=== PATIENT | male | born 1940 | race Caucasian/White ===

== ENCOUNTER 2019-08-03 11:33 | Outpatient (CLI) | payer OTHER, SELFPAY ==
--- NOTE | 2019-08-03 11:39 | XR_ITS ---
WS: [id number] XR lumbar spine f/e only [id number] REASON FOR EXAM: SPONDYLOLISTHESIS,LUMBAR REGION FINDINGS: Loss of the disc spaces are noted from L2-3 through L5-S1 with marked degenerate changes. W e suspect spinal stenosis extending from L2 through the S1 segment. XR/XR lumbar spine f/e only [id number] IMPRESSION: Degenerated disc changes L2-S1 Suspect spinal stenosis L2-S1.
== END 2019-08-03 11:34 | disposition home or self-care (01) ==
LOC: RAD 11:36
PROVIDERS: PCP Emergency Medicine Emergency Medical Services; Visit Provider Nurse Practitioner
DX: M43.16 Spondylolisthesis, lumbar region (principal); M51.37 Other intervertebral disc degeneration, lumbosacral region
CPT/HCPCS: 72120

== ENCOUNTER → 2019-09-22 10:36 | Outpatient (BNVA) | payer OTHER, SELFPAY | PROVIDERS: PCP Emergency Medicine Emergency Medical Services; Visit Provider Internal Medicine Cardiovascular Disease | DX: R06.02 Shortness of breath (principal); R60.9 Edema, unspecified; I50.33 Acute on chronic diastolic (congestive) heart failure; I25.10 Atherosclerotic heart disease of native coronary artery without angina pectoris; E78.2 Mixed hyperlipidemia; I73.9 Peripheral vascular disease, unspecified; Z87.891 Personal history of nicotine dependence; I11.0 Hypertensive heart disease with heart failure | CPT/HCPCS: 80048; 83880 ==

== ENCOUNTER 2020-01-05 09:08 | Outpatient (CLI) | payer OTHER, SELFPAY ==
--- NOTE | 2020-01-05 09:30 | US_ITS ---
WS: [id number] RENAL ULTRASOUND HISTORY: Stones COMPARISON: None available. TECHNIQUE: 2-D and color Doppler imaging of the kidney submitted. Right kidney: 11.4 cm x 5.7 cm x 7.0 cm. Normal echogenicity with no hydronephrosis or mass. Left kidney: 11.2 cm x 4.7 cm x 4.9 cm. Normal echogenicity with no hydronephrosis or mass. Aorta: Normal. Urinary Bladder: Normal distention. US/US renal BI* [id number] IMPRESSION: Normal renal ultrasound.
--- NOTE | 2020-01-05 10:15 | XR_ITS ---
WS: [id number] Exam: XR KUB [id number] Date/Time of Exam: 01/05/2020 10:15 AM Reason For Exam: Stones No bowel obstruction or free air. Mild ileus. Visualized organ margins are intact. No abnormal calcif ication noted in the region of the renal silhouettes. Advanced DJD of the lumbar spine and mild scoli osis. Right total hip replacement. Moderate amount of stool in the colon. XR/XR KUB [id number] IMPRESSION: 1. No abnormal calcifications seen in the region of the kidneys. 2. Mild ileus. Moderate amount retained stool in the colon. 3. Additional findings as above.
== END 2020-01-05 09:09 | disposition home or self-care (01) ==
PROVIDERS: PCP Emergency Medicine Emergency Medical Services; Visit Provider Urology
DX: N20.0 Calculus of kidney (principal); K56.7 Ileus, unspecified; M47.816 Spondylosis without myelopathy or radiculopathy, lumbar region
CPT/HCPCS: 74018; 76770; 81003

== ENCOUNTER → 2020-05-31 09:59 | Outpatient (BNVA) | payer OTHER, SELFPAY | PROVIDERS: PCP Emergency Medicine Emergency Medical Services; Visit Provider Orthopaedic Surgery | DX: Z20.822 Contact with and (suspected) exposure to COVID-19 (principal); Z11.52 Encounter for screening for COVID-19 | CPT/HCPCS: 87635 ==

== ENCOUNTER 2020-06-06 07:43 | Outpatient (CLI) | payer OTHER, SELFPAY ==
--- NOTE | 2020-06-06 11:00 | PFTS_ITS ---
Date of Study:06/06/20 Date of Dictation: MECHANICS: Forced vital capacity (FVC) is normal. Forced expiratory volume in one second (FEV1) is normal. FEV1/FVC is reduced. FLOW VOLUME LOOP: Significant scooping. LUNG VOLUMES: Not measured DIFFUSING CAPACITY FOR CARBON MONOXIDE: Not measured. INTERPRETATION: The postbronchodilator spirometry is consistent with mild airflow obstruction. There is a significant postbronchodilator response. Lung volumes and gas exchange were not measured. MTDD
== END 2020-06-06 07:44 | disposition home or self-care (01) ==
LOC: RT 07:45
PROVIDERS: PCP Emergency Medicine Emergency Medical Services; Visit Provider Orthopaedic Surgery
DX: J44.9 Chronic obstructive pulmonary disease, unspecified (principal); N18.9 Chronic kidney disease, unspecified
CPT/HCPCS: 94060; J7611

== ENCOUNTER 2020-08-03 10:43 | Outpatient (CLI) | payer OTHER, SELFPAY ==
[2020-08-03 11:42] LABS: Alanine Aminotransferase 14 U/L (0-41); Alkaline Phosphatase 101 IU/L (40-130); Anion Gap 13.1 (5-19); Aspartate Amino Transferase 15 U/L (0-40); Blood Urea Nitrogen 13 mg/dL (8-23); Calcium 9.1 mg/dL (8.5-10.5); Carbon Dioxide 28 mmol/L (22-29); Chloride 100 mmol/L (98-107); Globulin 2.6 g/dL (1.3-4.6); Glucose 100 mg/dL (65-115); Osmolality Calculated 284 mOsm/kg (285-295); Potassium 4.1 mmol/L (3.5-5.1); Sodium 137 mmol/L (136-145); Total Bilirubin 0.4 mg/dL (0.15-1.2); Total Protein 6.6 g/dL (6.6-8.7)
== END 2020-08-03 10:44 | disposition home or self-care (01) ==
LOC: LAB 10:45
PROVIDERS: PCP Emergency Medicine Emergency Medical Services; Visit Provider Orthopaedic Surgery
DX: N18.9 Chronic kidney disease, unspecified (principal)
CPT/HCPCS: 36415; 80053

== ENCOUNTER → 2021-07-18 09:58 | Outpatient (BNVA) | payer OTHER, SELFPAY | PROVIDERS: PCP Emergency Medicine Emergency Medical Services; Visit Provider Internal Medicine Cardiovascular Disease | DX: I25.10 Atherosclerotic heart disease of native coronary artery without angina pectoris (principal); D64.9 Anemia, unspecified; I10 Essential (primary) hypertension; E78.2 Mixed hyperlipidemia; I73.9 Peripheral vascular disease, unspecified; Z87.891 Personal history of nicotine dependence | CPT/HCPCS: 99214 ==

== ENCOUNTER → 2021-07-30 09:44 | Outpatient (BNVA) | payer OTHER, SELFPAY | PROVIDERS: PCP Emergency Medicine Emergency Medical Services; Visit Provider Surgery | DX: D64.9 Anemia, unspecified (principal); Z86.010 Personal history of colon polyps; R13.10 Dysphagia, unspecified; K92.1 Melena | CPT/HCPCS: 99204 ==

== ENCOUNTER 2021-09-19 08:32 | Day surgery (SDC) | payer OTHER, SELFPAY ==
[2021-09-18 08:58] VITALS: BMI 38.7
[2021-09-19 08:52] VITALS: BP 176/86; PULSE 60; RESP 18; TEMP 36.8; O2SAT 95
[2021-09-19] MEDS: sodium chloride 0.9% 1,000 ML 30 ML IV (08:57)
--- NOTE | 2021-09-19 09:29 | ANES.PREANE2 ---
Pre-Anesthetic Assessment Height/Weight: Height 1.73 m Weight 115.666 kg Temp Pulse Resp BP Pulse Ox O2 Del Method 98.3 F 60 18 176/86 95 09/19/21 08:52 09/19/21 08:52 09/19/21 08:52 09/19/21 08:52 09/19/21 08:52 09/19/21 08:52 Operation Date: 09/19/21 10:00 Proposed Procedures p 31883 EGD W/ Balloon , [id number] Colon,R13.10,Z86.010(Not Applicable) - DO russ Caceres Colonoscopy(Not Applicable) - Garry Hernandez DO Familial anesthetic complications: none Was Beta Mason taken within 24 hours: Yes Was Clonidine taken within 24 hours: N/A Last intake: Intake Last Liquid Date 09/18/21 Last Liquid Time 00:00 Last Solid Date 09/17/21 Last Solid Time 00:00 Social No alcohol and No tobacco (h/o smoking) Exam alert, oriented x 3, clear to auscultation bilaterally and regular rate & rhythm Airway Submandibular: within normal limits Cervical ROM: within normal limits Mallampati: Class II Dentition: false Pulmonary Chronic Obstructive Pulmonary Disease and Sleep Apnea CV/HEM Anemia, Coronary Artery Disease, Hypertension and Peripheral Vascular Disease Metabolic Hyperlipidemia and Morbid Obesity Anesthetic Plan ASA status: 3 Anesthesia: MAC Medications/Allergies Home Medications Medication Instructions Recorded Confirmed Last Taken Type cetirizine 10 mg tablet 10 mg PO DAILY PRN Allergy Symptoms 07/25/19 09/19/21 09/05/21 History cholecalciferol (vitamin D3) 50 50 mcg PO DAILY 07/25/19 09/19/21 09/17/21 History mcg (2,000 unit) capsule pravastatin 40 mg tablet 40 mg PO DAILY 07/25/19 09/19/21 09/18/21 History hydrocodone 5 mg-acetaminophen 325 1 tab PO Q6H PRN Pain 09/22/19 09/19/21 09/18/21 History mg tablet albuterol sulfate 90 mcg/actuation 2 puff inhalation Q6H PRN 07/24/20 09/19/21 09/12/21 History aerosol inhaler Shortness Of Breath bupropion HCl 150 mg tablet,12 hr 300 mg PO QAM 07/24/20 09/19/21 09/19/21 History sustained-release (Wellbutrin SR) famotidine 20 mg tablet 20 mg PO BID 07/24/20 09/19/21 09/18/21 History tadalafil 10 mg tablet 10 mg PO DAILY PRN Sexual Activity 07/24/20 09/19/21 Unknown History venlafaxine 150 mg 150 mg PO DAILY 07/24/20 09/19/21 09/19/21 History capsule,extended release 24 hr hydralazine 25 mg tablet 25 mg PO TID #270 tabs 01/18/21 09/19/21 09/17/21 Rx ferrous sulfate 325 mg (65 mg 325 mg PO DAILY 07/18/21 09/19/21 09/12/21 History iron) tablet folic acid 1 mg tablet 2 mg PO DAILY 07/18/21 09/19/21 09/17/21 History furosemide 40 mg tablet 40 mg PO DAILY PRN Edema 07/18/21 09/19/21 09/16/21 History potassium chloride 20 mEq 20 meq PO .3XWK 07/18/21 09/19/21 Unknown History tablet,extended release bisacodyl 5 mg tablet,delayed 5 mg PO DAILY 07/30/21 09/19/21 09/18/21 History release cilostazol 100 mg tablet 50 mg PO BID 07/30/21 09/18/21 Unknown History triamcinolone acetonide 0.1 % 1 applic topical DAILY PRN Rash 07/30/21 09/19/21 Unknown History topical cream albuterol sulfate 2.5 mg inhalation QID PRN 09/18/21 09/19/21 09/12/21 History Shortness Of Breath Or Wheezing diclofenac sodium 1 % topical gel 2 g topical QID PRN Pain 09/18/21 09/19/21 09/17/21 History metoprolol tartrate 25 mg tablet 12.5 mg PO BID 09/18/21 09/19/21 09/19/21 History tamsulosin 0.4 mg capsule 0.8 mg PO .EVENING 09/18/21 09/19/21 09/17/21 History Allergies Allergy/AdvReac Type Severity Reaction Status Date / Time amlodipine AdvReac Dizziness/L Verified 07/30/21 09:53 ightheadedn ess/Presync ope Current Medications Generic Name Dose Route Start Last Admin Trade Name Freq PRN Reason Stop Dose Admin Sodium Chloride 1,000 mls @ 30 mls/hr 09/19/21 08:45 09/19/21 08:57 Sodium Chloride 0.9% IV 09/20/21 08:44 30 mls/hr .Q24H AMANDA Administration PFSH Anesthesia Medical History (Updated 07/30/21 @ 10:26 by Garry Hernandez DO) Anxiety Atherosclerosis of coronary artery of [place] heart without angina pectoris The most recent cardiac catheterization was done on 12/01/2018 BPH loc w urin obs/LUTS Chronic kidney disease COPD (chronic obstructive pulmonary disease) Edema, peripheral GERD (gastroesophageal reflux disease) History of colon polyps History of kidney stones Hyperlipidemia Hypertension Impotence, organic Incomplete bladder emptying Malignant melanoma of skin Peptic ulcer Peripheral arterial disease Peroneal tendinitis SOB (shortness of breath) Vitamin D deficiency Surgical History H/O arthroscopy of knee H/O hernia repair History of colonoscopy with polypectomy History of esophagogastroduodenoscopy History of right hip replacement History of right knee joint replacement Hx of cataract extraction Hx of total knee replacement Family History Mother Cancer Lung disease Father Cancer Lung disease Sister Cancer Dementia Family/Other Cancer Grandmother Diabetes Other Hypertension Denies family history of CAD (coronary artery disease) Clotting disorder Chronic kidney disease (CKD) Suicide Anesthesia complication Bleeding disorder Stroke Social History Smoking and tobacco status: former smoker (quit in ) Alcohol intake: current Alcohol intake frequency: 0-2 Drinks per Day Household members: spouse Marital status: Current occupational status: retired Data Anesthesia Cardiac Studies: No Data to Display
--- NOTE | 2021-09-19 09:55 | PM.HP ---
Providers/Chief Complaint Primary Care Provider: Jonny Clay DO Chief Complaint: GERD, dysphagia, hematochezia, anemia History of Present Illness Víctor Rogers is a 81 year old male who comes for EGD with possible dilation and colonoscopy for GERD, dysphagia, hematochezia and anemia. This is an update H&P Review of Systems General: Reports: 10 or more systems reviewed and unremarkable except in HPI and below Medications/Allergies Home Medications Medication Instructions Recorded Confirmed Last Taken Type cetirizine 10 mg tablet 10 mg PO DAILY PRN Allergy Symptoms 07/25/19 09/19/21 09/05/21 History cholecalciferol (vitamin D3) 50 50 mcg PO DAILY 07/25/19 09/19/21 09/17/21 History mcg (2,000 unit) capsule pravastatin 40 mg tablet 40 mg PO DAILY 07/25/19 09/19/21 09/18/21 History hydrocodone 5 mg-acetaminophen 325 1 tab PO Q6H PRN Pain 09/22/19 09/19/21 09/18/21 History mg tablet albuterol sulfate 90 mcg/actuation 2 puff inhalation Q6H PRN 07/24/20 09/19/21 09/12/21 History aerosol inhaler Shortness Of Breath bupropion HCl 150 mg tablet,12 hr 300 mg PO QAM 07/24/20 09/19/21 09/19/21 History sustained-release (Wellbutrin SR) famotidine 20 mg tablet 20 mg PO BID 07/24/20 09/19/21 09/18/21 History tadalafil 10 mg tablet 10 mg PO DAILY PRN Sexual Activity 07/24/20 09/19/21 Unknown History venlafaxine 150 mg 150 mg PO DAILY 07/24/20 09/19/21 09/19/21 History capsule,extended release 24 hr hydralazine 25 mg tablet 25 mg PO TID #270 tabs 01/18/21 09/19/21 09/17/21 Rx ferrous sulfate 325 mg (65 mg 325 mg PO DAILY 07/18/21 09/19/21 09/12/21 History iron) tablet folic acid 1 mg tablet 2 mg PO DAILY 07/18/21 09/19/21 09/17/21 History furosemide 40 mg tablet 40 mg PO DAILY PRN Edema 07/18/21 09/19/21 09/16/21 History potassium chloride 20 mEq 20 meq PO .3XWK 07/18/21 09/19/21 Unknown History tablet,extended release bisacodyl 5 mg tablet,delayed 5 mg PO DAILY 07/30/21 09/19/21 09/18/21 History release cilostazol 100 mg tablet 50 mg PO BID 07/30/21 09/18/21 Unknown History triamcinolone acetonide 0.1 % 1 applic topical DAILY PRN Rash 07/30/21 09/19/21 Unknown History topical cream albuterol sulfate 2.5 mg inhalation QID PRN 09/18/21 09/19/21 09/12/21 History Shortness Of Breath Or Wheezing diclofenac sodium 1 % topical gel 2 g topical QID PRN Pain 09/18/21 09/19/21 09/17/21 History metoprolol tartrate 25 mg tablet 12.5 mg PO BID 09/18/21 09/19/21 09/19/21 History tamsulosin 0.4 mg capsule 0.8 mg PO .EVENING 09/18/21 09/19/21 09/17/21 History Allergies Allergy/AdvReac Type Severity Reaction Status Date / Time amlodipine AdvReac Dizziness/L Verified 07/30/21 09:53 ightheadedn ess/Presync ope PFSH Acute PFSH: Medical History (Updated 09/19/21 @ 09:56 by Garry Hernandez DO) Anxiety Atherosclerosis of coronary artery of [place] heart without angina pectoris The most recent cardiac catheterization was done on 12/01/2018 BPH loc w urin obs/LUTS Chronic kidney disease COPD (chronic obstructive pulmonary disease) Edema, peripheral GERD (gastroesophageal reflux disease) History of colon polyps History of kidney stones Hyperlipidemia Hypertension Impotence, organic Incomplete bladder emptying Malignant melanoma of skin Peptic ulcer Peripheral arterial disease Peroneal tendinitis SOB (shortness of breath) Vitamin D deficiency Surgical History H/O arthroscopy of knee H/O hernia repair History of colonoscopy with polypectomy History of esophagogastroduodenoscopy History of right hip replacement History of right knee joint replacement Hx of cataract extraction Hx of total knee replacement Family History Mother Cancer Lung disease Father Cancer Lung disease Sister Cancer Dementia Family/Other Cancer Grandmother Diabetes Other Hypertension Denies family history of CAD (coronary artery disease) Clotting disorder Chronic kidney disease (CKD) Suicide Anesthesia complication Bleeding disorder Stroke Social History Smoking and tobacco status: former smoker (quit in ) Alcohol intake: current Alcohol intake frequency: 0-2 Drinks per Day Household members: spouse Marital status: Current occupational status: retired Vitals/I&O/Wt Last Vital Signs Temp 98.3 F 09/19/21 08:52 Pulse 60 09/19/21 08:52 Resp 18 09/19/21 08:52 BP 176/86 09/19/21 08:52 Pulse Ox 95 09/19/21 08:52 O2 Del Method 09/19/21 08:52 Weight last 48 hrs Weight 255 lb Physical Exam Narrative: General : Patient is well developed , no acute distress, oriented x3 Head : Normal cephalic, a-traumatic. Ears : Pinnae and external canal are normal. Hearing is normal. Eyes : PERRLA, Sclera and injection are normal. No conjunctival discharge. Nose : Mucous membranes are without erythema. Throat : buccal mucosa is normal, gums are without significant recession or hypertrophy. Lungs : Equal chest rise bilaterally, no use of accessory muscles, trachea is midline. Cor : Rate and rhythm are normal. Abdomen : Soft, ND, NT, no g/r/m Extremities : No edema, no cyanosis or clubbing, dorsalis pedis pulses are present bilaterally, non-tender to palpation of calves. Upper extremities are normal bilaterally. Back : non-tender to palpation, no CVA tenderness. Neuro : CN II - XII intact, Upper and lower extremities have equal and full strength A&P Assessment and plan (1) Dysphagia: Status: Acute (2) Hematochezia: Status: Acute (3) Anemia: Status: Acute (4) History of colon polyps: Status: Acute (5) GERD (gastroesophageal reflux disease): Status: Acute Plan EGD with possible dilation Colonoscopy The risks and benefits of the procedure, including bleeding, infection, intestinal perforation requiring surgery, missed lesion, or explained to the patient. He is understanding of the risks and wishes to proceed. Attestations Medical Necessity Statement*: Patient will be discharged home after the procedure Coding Level of Care Code Acute Training And Development Officer for [facility] Fwd Diagnoses Dysphagia R13.10 Hematochezia K92.1 Anemia D64.9 History of colon polyps Z86.010 GERD (gastroesophageal reflux disease) K21.9
[2021-09-19 10:32] VITALS: BP 178/86; PULSE 65; RESP 18; TEMP 36.4; O2SAT 98
[2021-09-19 10:43] VITALS: BP 164/85; PULSE 60; RESP 18; O2SAT 96
[2021-09-19 10:50] VITALS: BP 186/88; PULSE 57; RESP 18; O2SAT 95
--- NOTE | 2021-09-19 13:38 | ANE.PACU2 ---
Inpatient post-anesthesia follow up: Airway intact: Yes Vital signs: Temperature 97.6 F Pulse Rate 57 Respiratory Rate 18 Blood Pressure 186/88 Pulse Oximetry 95 Oxygen Delivery Me thod Room Air Oxygen Flow Rate Fraction of Inspir ed Oxygen Hydration adequate: Yes Nausea and vomiting: No Pain level: 1 Mental status: Baseline
== END 2021-09-19 11:05 | disposition home or self-care (01) ==
PROVIDERS: PCP Emergency Medicine Emergency Medical Services; Visit Provider Surgery
PROC: 0DJD8ZZ Inspection of Lower Intestinal Tract, Via Natural or Artificial Opening Endoscopic (ICD-10-PCS; CPT 45378; 2021-09-19 10:00)
DX: K22.2 Esophageal obstruction (principal); D12.4 Benign neoplasm of descending colon; K92.1 Melena; R13.10 Dysphagia, unspecified; D64.9 Anemia, unspecified; Z86.010 Personal history of colon polyps; K21.9 Gastro-esophageal reflux disease without esophagitis; F41.9 Anxiety disorder, unspecified; I25.10 Atherosclerotic heart disease of native coronary artery without angina pectoris; N40.1 Benign prostatic hyperplasia with lower urinary tract symptoms; N13.8 Other obstructive and reflux uropathy; J44.9 Chronic obstructive pulmonary disease, unspecified; E78.5 Hyperlipidemia, unspecified; Z87.11 Personal history of peptic ulcer disease; E55.9 Vitamin D deficiency, unspecified; I12.9 Hypertensive chronic kidney disease with stage 1 through stage 4 chronic kidney disease, or unspecified chronic kidney disease; N18.9 Chronic kidney disease, unspecified; Z87.891 Personal history of nicotine dependence; G47.30 Sleep apnea, unspecified; I10 Essential (primary) hypertension; E66.01 Morbid (severe) obesity due to excess calories; Z68.38 Body mass index [BMI] 38.0-38.9, adult
CPT/HCPCS: 43249; 45380; 88305; J2704; J7030

== ENCOUNTER → 2021-10-03 09:49 | Outpatient (BNVA) | payer OTHER, SELFPAY | PROVIDERS: PCP Emergency Medicine Emergency Medical Services; Visit Provider Surgery | DX: D36.9 Benign neoplasm, unspecified site (principal); K22.2 Esophageal obstruction | CPT/HCPCS: 99212 ==

== ENCOUNTER → 2022-01-23 09:38 | Outpatient (BNVA) | payer OTHER, SELFPAY | PROVIDERS: PCP Emergency Medicine Emergency Medical Services; Visit Provider Internal Medicine Cardiovascular Disease | DX: I25.10 Atherosclerotic heart disease of native coronary artery without angina pectoris (principal); E78.2 Mixed hyperlipidemia; I73.9 Peripheral vascular disease, unspecified; J61 Pneumoconiosis due to asbestos and other mineral fibers; J44.9 Chronic obstructive pulmonary disease, unspecified; Z87.891 Personal history of nicotine dependence; I12.9 Hypertensive chronic kidney disease with stage 1 through stage 4 chronic kidney disease, or unspecified chronic kidney disease; N18.9 Chronic kidney disease, unspecified | CPT/HCPCS: 99214 ==

== ENCOUNTER → 2022-08-04 08:56 | Outpatient (BNVA) | payer OTHER, SELFPAY | PROVIDERS: PCP Emergency Medicine Emergency Medical Services; Visit Provider Specialist | DX: I12.9 Hypertensive chronic kidney disease with stage 1 through stage 4 chronic kidney disease, or unspecified chronic kidney disease (principal); N18.9 Chronic kidney disease, unspecified; I25.10 Atherosclerotic heart disease of native coronary artery without angina pectoris; E78.5 Hyperlipidemia, unspecified; Z87.891 Personal history of nicotine dependence | CPT/HCPCS: 99214 ==

== ENCOUNTER 2022-08-31 08:23 | Emergency (ER) | payer OTHER, SELFPAY ==
--- NOTE | 2022-08-31 08:29 | USR_ITS ---
PROCEDURE INFORMATION: Exam: US Scrotum Exam date and time: 08/31/2022 9:00 AM Age: 82 years old Clinical indication: Swelling, testicles or scrotum; Additional info: Swollen testicle TECHNIQUE: Imaging protocol: Real-time ultrasound of the scrotum and contents with color Doppler and image documentation. COMPARISON: None FINDINGS: Right testicle: Nonvisualization of the right testis. Left testicle: Left testis measures 4.3 x 2.2 by 3.2 cm. Intratesticular blood flow demonstrated. 9 mm left testicular cyst.. Epididymides: Left epididymal cysts, largest measuring 10 mm. Scrotum/soft tissues: Bilateral scrotal cysts, including a septated cyst in the right scrotum measuring 3.3 x 1.4 x 2.9 cm. Small left hydrocele. Left varicocele. US/US scrotum [id number] IMPRESSION: 1. Bilateral scrotal cysts, including a septated right scrotal cyst measuring 3.3 x 1.4 x 2.9 cm. Additional epididymal and left testicular cysts. 2. Nonvisualization of the right testis. 3. Left varicocele.
[2022-08-31 08:34] VITALS: BP 182/101; PULSE 56; RESP 16; TEMP 36.6; O2SAT 97
[2022-08-31 08:41] VITALS: BP 182/101; PULSE 55; RESP 18; O2SAT 95
--- NOTE | 2022-08-31 08:41 | ED_ITS ---
HPI - Male Genitourinary General: Chief complaint: Urogenital-Male Stated complaint: swollen testicle Time Seen by Provider: 08/31/22 08:29 History of Present Illness: Patient is a 82-year-old male comes to the ED with testicle swelling. 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 Past medical history of GERD, hypertension, COPD and CKD. He states that approximately 6 to 7 days ago patient's dog jumped up to sit on his lap and it smashed his testicle. He was having some mild soreness and achiness in his testicle after the first couple days. About 2 days ago he noticed his testicle started swelling. He says the pain is still continued to be mild. Pain worsens if he gets up and walks around. Denies any fevers, chills, vomiting, abdominal pain, bladder or bowel symptoms. Associated symptoms: Deny dysuria, hematuria, nausea or vomiting Review of Systems Const: Denies: fever(s), chills or fatigue Eyes: Denies: change in vision or eye discomfort ENMT: Denies: throat pain, odynophagia, nasal discharge or nasal congestion Card: Denies: chest pain, palpitations, edema, swelling of feet/ankles, dyspnea on exertion or orthopnea Resp: Denies: dyspnea, productive cough or non-productive cough GI: Denies: abdominal pain, nausea, vomiting, diarrhea, constipation or hematochezia : Reports: testicular pain and scrotal swelling; Denies: flank pain, difficulty urinating, dysuria, hematuria, genital lesions or penile discharge Musc: Denies: neck pain, back pain or extremity swelling Skin/Breast: Denies: rash or new lesions Neuro: Denies: headache(s), numbness in extremities or weakness in extremities PFSH ED PFSH: Medical History Anxiety Atherosclerosis of coronary artery of [place] heart without angina pectoris The most recent cardiac catheterization was done on 12/01/2018 BPH loc w urin obs/LUTS Chronic kidney disease COPD (chronic obstructive pulmonary disease) Dysphagia Edema, peripheral Esophageal stricture GERD (gastroesophageal reflux disease) History of colon polyps History of kidney stones Hyperlipidemia Hypertension Impotence, organic Incomplete bladder emptying Malignant melanoma of skin Peptic ulcer Peripheral arterial disease Peroneal tendinitis SOB (shortness of breath) Tubular adenoma Vitamin D deficiency Surgical History H/O arthroscopy of knee H/O hernia repair History of colonoscopy with polypectomy History of esophagogastroduodenoscopy History of right hip replacement History of right knee joint replacement Hx of cataract extraction Hx of total knee replacement Family History Mother Cancer Lung disease Father Cancer Lung disease Sister Cancer Dementia Family/Other Cancer Grandmother Diabetes Other Hypertension Denies family history of CAD (coronary artery disease) Clotting disorder Chronic kidney disease (CKD) Suicide Anesthesia complication Bleeding disorder Stroke Social History Smoking and tobacco status: former smoker (quit in ) Alcohol intake: current Alcohol intake frequency: 0-2 Drinks per Day Substance/Drug Use: never Household members: spouse Marital status: Current occupational status: retired Physical Exam Const: COMMON NORMALS: no acute distress, patient oriented x3 and alert HENMT: COMMON NORMALS: normocephalic HEAD & SCALP: normocephalic MOUTH: Normal oral and palatal mucosa present THROAT: posterior oropharynx normal and uvula midline Neck/C-Spine: COMMON NORMALS: supple GENERAL: Yes normal visual inspection Resp: COMMON NORMALS: normal respiratory effort, No retractions, No use of accessory muscles and clear to auscultation bilaterally AUSCULTATION: clear to auscultation bilaterally Cardio: COMMON NORMALS: regular rate, regular rhythm, S1 normal heart sound present, S2 normal heart sound present, No gallops present (Cardio), No clicks present (Cardio), No murmurs present (Cardio) and Peripheral pulses 2+ throughout RATE: regular rate RHYTHM: regular rhythm HEART SOUNDS: S1 normal heart sound present and S2 normal heart sound present PERIPHERAL PULSES: Peripheral pulses 2+ throughout GI: COMMON NORMALS: Normal to inspection, nondistended, normoactive bowel sounds present, Soft to palpation, non-tender and no masses PALPATION: Yes Soft to palpation : COMMON NORMALS: Yes no CVA tenderness BLADDER/KIDNEY EXAM: Yes no CVA tenderness SCROTUM: Yes Scrotal tenderness present, No erythematous and Yes scrotal swelling Scrotal swelling laterality: bilateral OTHER: Patient does not have right testicle, patient states he lost testicle after an injury in high school. Back/Pelvis: COMMON NORMALS: no CVA tenderness Extremity: COMMON NORMALS: normal to inspection Neuro: COMMON NORMALS: patient oriented x3 SENSORIUM/ORIENTATION: Yes alert GAIT: Yes Normal gait present Skin: GENERAL SKIN EXAM: dry skin Course Vital Signs: Vital signs: Vital Signs Temperature 98 F 08/31/22 11:12 Pulse Rate 60 08/31/22 11:12 Respiratory Rate 18 08/31/22 11:12 Blood Pressure 153/78 08/31/22 11:12 Pulse Oximetry 99 08/31/22 11:12 Oxygen Delivery Me thod Room Air 08/31/22 10:30 [facility] - Male Medical Decision Making Patient is a 82-year-old male comes to the ED with testicle swelling. 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 Past medical history of GERD, hypertension, COPD and CKD. He states that approximately 6 to 7 days ago patient's dog jumped up to sit on his lap and it smashed his testicle. He was having some mild soreness and achiness in his testicle after the first couple days. About 2 days ago he noticed his testicle started swelling. He says the pain is still continued to be mild. Pain worsens if he gets up and walks around. Denies any fevers, chills, vomiting, abdominal pain, bladder or bowel symptoms. Vitals are stable patient appears nontoxic in no acute distress or pain. He has tender bilateral scrotal mass noted. No erythema seen. Rest of exam is benign. CBC, CMP and UA were all unremarkable. Scrotal ultrasound showed a bilateral scrotal cyst with some additional epididymal and left testicular cysts as well. I placed an order with case management for patient be referred to urologist for follow-up on scrotal cyst. Return to ED precautions given. Patient understood and agreed with plan. Lab Data I reviewed the patient's lab results. 08/31/22 08:57 08/31/22 08:57 Radiology Impressions Scrotum Ultrasound 08/31/22 08:29 IMPRESSION: 1. Bilateral scrotal cysts, including a septated right scrotal cyst measuring 3.3 x 1.4 x 2.9 cm. Additional epididymal and left testicular cysts. 2. Nonvisualization of the right testis. 3. Left varicocele. Laboratory Results WBC 7.9 10^3/uL (4.0-10.0) 08/31/22 08:57 RBC 4.92 10^6/uL (4.1-5.3) 08/31/22 08:57 Hgb 14.4 g/dL (11.7-16.6) 08/31/22 08:57 Hct 44.5 % (42.0-52.0) 08/31/22 08:57 MCV 90.4 fl (80-94) 08/31/22 08:57 MCH 29.3 pg (28.0-34.0) 08/31/22 08:57 MCHC 32.4 g/dL (30.0-36.0) 08/31/22 08:57 RDW 14.6 % (12.1-15.1) 08/31/22 08:57 Plt Count 258 10^3/cmm (130-400) 08/31/22 08:57 MPV 9.2 fL (7.4-10.4) 08/31/22 08:57 Neut % (Auto) 59.5 % 08/31/22 08:57 Lymph % (Auto) 23.6 % 08/31/22 08:57 [place] % (Auto) 12.8 % 08/31/22 08:57 Eos % (Auto) 2.8 % 08/31/22 08:57 Baso % (Auto) 1.0 % 08/31/22 08:57 Neut # (Auto) 4.72 10^3/uL (1.8-7.7) 08/31/22 08:57 Lymph # (Auto) 1.9 10^3/uL (0.8-4.8) 08/31/22 08:57 [place] # (Auto) 1.0 10^3/uL (0.2-0.9) H 08/31/22 08:57 Eos # (Auto) 0.2 10^3/uL (0.0-0.8) 08/31/22 08:57 Baso # (Auto) 0.1 10^3/uL (0.0-0.1) 08/31/22 08:57 Nucleated RBC % (auto) 0 % 08/31/22 08:57 Nucleated RBCs # 0.0 /100WBC 08/31/22 08:57 Sodium 134 mmol/L (136-145) L 08/31/22 08:57 Potassium 3.9 mmol/L (3.5-5.1) 08/31/22 08:57 Chloride 99 mmol/L (98-107) 08/31/22 08:57 Carbon Dioxide 24 mmol/L (22-29) 08/31/22 08:57 Anion Gap 14.9 (5-19) 08/31/22 08:57 BUN 14 mg/dL (8-23) 08/31/22 08:57 Creatinine 1.1 mg/dL (0.7-1.2) 08/31/22 08:57 GFR Calculation Not Reportable 08/31/22 08:57 Glucose 102 mg/dL (65-115) 08/31/22 08:57 Calculated Osmolality 279 mOsm/kg (285-295) L 08/31/22 08:57 Calcium 9.3 mg/dL (8.5-10.5) 08/31/22 08:57 Total Bilirubin 0.9 mg/dL (0.15-1.2) 08/31/22 08:57 AST 19 U/L (0-40) 08/31/22 08:57 ALT 23 U/L (0-41) 08/31/22 08:57 Alkaline Phosphatase 89 U/L (40-130) 08/31/22 08:57 Total Protein 6.8 g/dL (6.6-8.7) 08/31/22 08:57 Albumin 3.9 g/dL (3.5-5.2) 08/31/22 08:57 Globulin 2.9 g/dL (1.3-4.6) 08/31/22 08:57 Urine Color Yellow (Yellow) 08/31/22 10:16 Urine Appearance Clear (CLEAR) 08/31/22 10:16 Urine pH 7 (5-7) 08/31/22 10:16 Ur Specific [place] 1.005 (1.005-1.030) 08/31/22 10:16 Urine Protein Neg (Negative) 08/31/22 10:16 Urine Glucose (UA) Norm (Normal) 08/31/22 10:16 Urine Ketones Negative (Negative) 08/31/22 10:16 Urine Blood Neg (Negative) 08/31/22 10:16 Urine Nitrate Negative (Negative) 08/31/22 10:16 Urine Bilirubin Neg (Negative) 08/31/22 10:16 Urine Urobilinogen Norm mg/dL (Negative) 08/31/22 10:16 Ur Leukocyte Esterase Negative (Negative) 08/31/22 10:16 Discharge Plan Discharge Patient Disposition: Home Clinical Impression: Cyst of scrotum Condition: Stable Prescriptions: No Action pravastatin 40 mg tablet 40 mg PO BEDTIME cetirizine 10 mg tablet 10 mg PO DAILY PRN (Reason: Allergy Symptoms) cholecalciferol (vitamin D3) 50 mcg (2,000 unit) capsule 50 mcg PO QAM furosemide 40 mg tablet 40 mg PO DAILY PRN (Reason: Edema) albuterol sulfate 90 mcg/actuation HFA aerosol inhaler 2 puff inhalation Q6H PRN (Reason: Shortness Of Breath) famotidine 20 mg tablet 20 mg PO BID tadalafil 10 mg tablet 10 mg PO DAILY PRN (Reason: Sexual Activity) Rx Instructions: administer approximately 30min before sexual activity; do not use more than 1 dose per 24hrs venlafaxine 150 mg capsule,extended release 24hr 150 mg PO QAM triamcinolone acetonide 0.1 % cream 1 applic topical DAILY PRN (Reason: Rash) cilostazol 100 mg tablet 50 mg PO BID hydrochlorothiazide 25 mg tablet 25 mg PO DAILY Qty: 90 2RF hydralazine 25 mg tablet 25 mg PO TID Qty: 270 3RF albuterol sulfate 2.5 mg /3 mL (0.083 %) Solution For Nebulization 2.5 mg INHALATION QID PRN (Reason: Shortness Of Breath Or Wheezing) diclofenac sodium 1 % Gel 2 g TOPICAL QID PRN (Reason: Pain) Rx Instructions: apply to single elbow, wrist or hand; for hand includes palm/fingers/back of hand tamsulosin 0.4 mg capsule 0.8 mg PO BEDTIME metoprolol tartrate 25 mg tablet 12.5 mg PO BID Aspir-81 81 mg Tablet,Delayed Release (Dr/Ec) 81 mg PO QAM Wellbutrin XL 150 mg Tablet Extended Release 24 Hr 150 mg PO QAM Discharge Orders: Discharge ED (Routine); Ordered 08/31/22 Ordered By: Eric Danitza Referrals: Jonny Clay DO [Primary Care Provider] - Discharge Diet: Regular Discharge Activity: Increase activity as tolerated Patient Instructions: Scrotal Pain (ED) Activity Restrictions/Additional Instructions: Follow-up with medical provider as directed. Case management should be contacted in the next several days to set up an appointment with urologist for follow-up on scrotal cyst. Continue taking home medications as prescribed. Return to the ER or your medical provider if condition worsens. Please read and understand discharge instructions. Thank you for choosing [facility] for your healthcare needs today. Please realize this is an emergency room and that we are providing you with a medical screening exam and this may not be complete and all inclusive of all the testing and or work up that you may need to determine your ailment or severity of your illness. It is very important that you follow up as instructed or that you return to the Emergency Department should you have concerns or if your condition changes or worsens in any way. Coding Level of Care Code ED Auto Electrical Technician for Maryan William
[2022-08-31 09:10] LABS: Basophils # 0.1 10^3/uL (0.0-0.1); Eosinophils # 0.2 10^3/uL (0.0-0.8); Eosinophils % 2.8 %; Hematocrit 44.5 % (42.0-52.0); Hemoglobin 14.4 g/dL (11.7-16.6); Lymphocytes # 1.9 10^3/uL (0.8-4.8); Lymphocytes % 23.6 %; Mean Corpuscular HGB Conc 32.4 g/dL (30.0-36.0); Mean Corpuscular Hemoglobin 29.3 pg (28.0-34.0); Mean Corpuscular Volume 90.4 fl (80-94); Mean Platelet Volume 9.2 fL (7.4-10.4); Monocytes % 12.8 %; Neutrophils # 4.72 10^3/uL (1.8-7.7); Neutrophils % 59.5 %; Nucleated Red Blood Cells % 0 %; Platelet Count 258 10^3/cmm (130-400); Red Blood Count 4.92 10^6/uL (4.1-5.3); Red Cell Distribution Width 14.6 % (12.1-15.1); White Blood Count 7.9 10^3/uL (4.0-10.0)
[2022-08-31 09:25] LABS: Alanine Aminotransferase 23 U/L (0-41); Albumin Level 3.9 g/dL (3.5-5.2); Alkaline Phosphatase 89 U/L (40-130); Anion Gap 14.9 (5-19); Aspartate Amino Transferase 19 U/L (0-40); Blood Urea Nitrogen 14 mg/dL (8-23); Calcium 9.3 mg/dL (8.5-10.5); Carbon Dioxide 24 mmol/L (22-29); Chloride 99 mmol/L (98-107); Globulin 2.9 g/dL (1.3-4.6); Glucose 102 mg/dL (65-115); Osmolality Calculated 279 mOsm/kg (285-295); Potassium 3.9 mmol/L (3.5-5.1); Sodium 134 mmol/L (136-145); Total Bilirubin 0.9 mg/dL (0.15-1.2); Total Protein 6.8 g/dL (6.6-8.7)
[2022-08-31 10:30] VITALS: BP 169/91; PULSE 57; RESP 18; O2SAT 99
[2022-08-31 10:47] LABS: Add Urine Microscopic? NO; Charge for UA Resulting for Rev
--- NOTE | 2022-08-31 10:54 | PC.PHAR ---
Addendum entered by Shannan Cline 08/31/22 11:03: pt states the pt takes wellbutrin xl 150mg qam and venlafaxine er 150mg qam Original Note: pt states his takes care of his medications-pts states she doesnt have a med list with her but states she can verify meds without list-medications entered are meds the pts states he takes faxed [facility] not open on sundays
[2022-08-31 10:55] LABS: Bilirubin Urine Neg (Negative); Blood Urine Neg (Negative); Glucose Urine UA Norm (Normal); Ketones Urine Negative (Negative); Leukocyte Esterase Urine Negative (Negative); Nitrate Urine Negative (Negative); Protein Urine Neg (Negative); Specific Gravity, Urine 1.005 (1.005-1.030); Urine Appearance Clear (CLEAR); Urine Color Yellow (Yellow); Urobilinogen Urine Norm (Negative); pH Urine 7 (5-7)
[2022-08-31 11:12] VITALS: BP 153/78; PULSE 60; RESP 18; TEMP 36.6; O2SAT 99
--- NOTE | 2022-09-01 11:05 | DCPLANNER ---
Addendum entered by Oriana Angeles 09/05/22 10:31: it help desk manager called [facility] urology to confirm that they had received patients information, therapeutic case manager was told that facility did receive patients information and that an appointment had been scheduled for patient. Original Note: it help desk manager had message to schedule a follow up appointment for patient with urology. it help desk manager called patient and spoke with his about referral, [facility] no longer has a urologist and needed to confirm where to send patients referral. Patients stated to send the referral to [facility]. it help desk manager faxed patients information to [facility] urology. Patients information will be reviewed, clinic will call patient with appointment information.
== END 2022-08-31 11:13 | disposition home or self-care (01) ==
PROVIDERS: Emergency Provider Physician Assistant; PCP Emergency Medicine Emergency Medical Services
DX: L72.9 Follicular cyst of the skin and subcutaneous tissue, unspecified (principal); Z79.82 Long term (current) use of aspirin; Z87.891 Personal history of nicotine dependence; I25.10 Atherosclerotic heart disease of native coronary artery without angina pectoris; I12.9 Hypertensive chronic kidney disease with stage 1 through stage 4 chronic kidney disease, or unspecified chronic kidney disease; N18.9 Chronic kidney disease, unspecified; J44.9 Chronic obstructive pulmonary disease, unspecified; E78.5 Hyperlipidemia, unspecified
CPT/HCPCS: 76870; 80053; 81003; 85025; 99284

== ENCOUNTER → 2023-04-16 10:03 | Outpatient (BNVA) | payer OTHER, SELFPAY | PROVIDERS: PCP Emergency Medicine Emergency Medical Services; Visit Provider Podiatrist Foot & Ankle Surgery | DX: M21.619 Bunion of unspecified foot; M77.52 Other enthesopathy of left foot and ankle; M20.42 Other hammer toe(s) (acquired), left foot | CPT/HCPCS: 99203 ==

== ENCOUNTER → 2023-07-21 11:32 | Outpatient (BNVA) | payer OTHER, SELFPAY | PROVIDERS: PCP Emergency Medicine Emergency Medical Services; Visit Provider Internal Medicine Cardiovascular Disease | DX: I25.10 Atherosclerotic heart disease of native coronary artery without angina pectoris (principal); I73.9 Peripheral vascular disease, unspecified; E78.2 Mixed hyperlipidemia; K21.00 Gastro-esophageal reflux disease with esophagitis, without bleeding; Z87.891 Personal history of nicotine dependence; I12.9 Hypertensive chronic kidney disease with stage 1 through stage 4 chronic kidney disease, or unspecified chronic kidney disease; N18.9 Chronic kidney disease, unspecified | CPT/HCPCS: 99214 ==

== ENCOUNTER → 2024-01-28 11:15 | Outpatient (BNVA) | payer OTHER, SELFPAY | PROVIDERS: PCP Emergency Medicine Emergency Medical Services; Visit Provider Internal Medicine Cardiovascular Disease | DX: R06.02 Shortness of breath | CPT/HCPCS: 36415; 80048; 83880 ==

== ENCOUNTER 2024-04-07 13:35 | Outpatient (CLI) | payer OTHER, SELFPAY ==
[2024-04-07 14:16] LABS: Basophils # 0.1 10^3/uL (0.0-0.1); Basophils % 0.6 %; Eosinophils # 0.1 10^3/uL (0.0-0.8); Eosinophils % 1.1 %; Hematocrit 44.8 % (37-53); Lymphocytes # 2.1 10^3/uL (0.8-4.8); Lymphocytes % 22.2 %; Mean Corpuscular HGB Conc 33.5 g/dL (30-55); Mean Corpuscular Hemoglobin 30.7 pg (27-33); Mean Corpuscular Volume 91.8 fl (82-101); Mean Platelet Volume 8.7 fL (7.4-10.4); Monocytes # 0.8 10^3/uL (0.2-0.9); Monocytes % 8.9 %; Neutrophils # 6.19 10^3/uL (1.8-7.7); Neutrophils % 66.8 %; Nucleated Red Blood Cells % 0 %; Platelet Count 367 10^3/cmm (157-399); Red Blood Count 4.88 10^6/uL (3.85-5.65); Red Cell Distribution Width 12.6 % (12.1-15.1); White Blood Count 9.28 10^3/uL (3.29-11.43)
[2024-04-07 14:33] LABS: Albumin Level 4.3 g/dL (3.5-5.2); Blood Urea Nitrogen 20 mg/dL (8-23); Calcium 9.5 mg/dL (8.5-10.5); Carbon Dioxide 27 mmol/L (22-29); Chloride 102 mmol/L (98-107); Glucose 133 mg/dL (65-115); Phosphorus 2.4 mg/dL (2.5-4.5); Sodium 140 mmol/L (136-145)
[2024-04-07 14:44] LABS: Calcium 9.7 mg/dL (8.5-10.5); Parathyroid Hormone 95.5 pg/mL (15-65)
== END 2024-04-07 13:36 | disposition home or self-care (01) ==
LOC: LAB 13:52
PROVIDERS: PCP Nurse Practitioner Family; Visit Provider Internal Medicine Nephrology
DX: N18.31 Chronic kidney disease, stage 3a (principal)
CPT/HCPCS: 36415; 80069; 82310; 83970; 85025

== ENCOUNTER 2024-06-21 08:48 | Outpatient (CLI) | payer OTHER, SELFPAY ==
--- NOTE | 2024-06-21 08:51 | US_ITS ---
WS: [id number] TESTICULAR ULTRASOUND HISTORY: NODULES COMPARISON: 08/31/2022 TECHNIQUE: Real-time and color Doppler imaging utilized to perform a testicular ultrasound. Right testicle: 4.2 cm x 3.1 cm x 3.0 cm. Normal size testicle. Multiple testicular cysts associated with the rete testes. The cysts are slightly lobulated and septated and were present on the prior study with mild increase in size and number. Largest cluster of cysts measures 1.9 x 1.0 cm. Normal color Doppler is present throughout. Systolic and diastolic velocities are both present. No significant hydrocele. Right epididymis: Small spermatoceles. Normal vascularity. Left testicle: 4.6 cm x 3.2 cm x 2.7 cm. Normal size and echogenicity. Numerous cysts are identified associated with the rete testes. Normal color Doppler is present throughout. Systolic and diastolic velocities are both present. No significant hydrocele. Left epididymis: Normal epididymis with no increased vascularity. US/US scrotum [id number] IMPRESSION: 1. No testicular solid mass or torsion. 2. 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 3. No evidence for epididymitis or orchitis.
== END 2024-06-21 08:49 | disposition home or self-care (01) ==
PROVIDERS: PCP Nurse Practitioner Family; Visit Provider Nurse Practitioner Family
DX: N44.2 Benign cyst of testis (principal); N43.42 Spermatocele of epididymis, multiple
CPT/HCPCS: 76870

== ENCOUNTER → 2024-07-29 10:33 | Outpatient (BNVA) | payer OTHER, SELFPAY | PROVIDERS: PCP Internal Medicine; Visit Provider Nurse Practitioner Family | DX: I25.10 Atherosclerotic heart disease of native coronary artery without angina pectoris (principal); I73.9 Peripheral vascular disease, unspecified; E78.2 Mixed hyperlipidemia; I10 Essential (primary) hypertension | CPT/HCPCS: 99213 ==